=== PATIENT | male | born 1945 | race Caucasian/White ===

== ENCOUNTER 2020-06-08 11:29 | Observation (INO) | payer OTHER, SELFPAY ==
[2020-06-08] VITALS (26 sets, daily range): BP systolic 133–197; BP diastolic 84–112; PULSE 54–138; RESP 15–30; TEMP 36.8–36.9; O2SAT 92–97; BMI 34.4; BMI 33.1
--- NOTE | 2020-06-08 11:44 | ED.SOB ---
HPI - SOB/Dyspnea General Chief Complaint: Shortness of Breath/Dyspnea Stated Complaint: Shortness of breath, COPD, asthma, afib Time Seen by Provider: 06/08/20 11:44 Source: patient Mode of arrival: Ambulatory Limitations: no limitations History of Present Illness HPI Narrative: This is a 75-year-old male who comes to the emergency department complaint of shortness of breath that is been worse over the last 10 days. Patient states he was seen at a clinic yesterday and encouraged to go to the hospital but did not. He was started on prednisone orally yesterday. He has not had any fevers, no nasal congestion, he has chronic cough which has had a little bit of intermittent green productive sputum but typically is clear and productive which is his norm. He has had increased shortness of breath over the last 10 days and not improving. Patient denies any chest pain or pressure or any radiation of chest pain or pressure. He denies any GI or urinary symptoms. He has swelling in his lower extremities but states maybe slightly worse than his normal. He states he always has a certain amount of swelling. He is not aware that he has any history of CHF but he does take Lasix daily. Patient does not have any other known cardiac history, he has known COPD/asthma. He denies any allergies. Related Data Allergies Allergy/AdvReac Type Severity Reaction Status Date / Time No Known Drug Allergies Allergy Verified 06/08/20 12:45 Review of Systems Review of Systems ROS Unobtainable: All systems reviewed & are unremarkable except as noted in HPI and below Patient History Social History Smoking Status: Former smoker Exam Narrative Exam Narrative: GEN: well nourished, well appearing male, alert and oriented x 3, patient appears to be in moderate distress. HEENT: Atraumatic, pupils are equal round reactive to light, extraocular movements are intact, nares are clear, TMs are clear with no fluid, there is no conjunctival pallor. Throat is clear without any exudates, erythema, tonsillar enlargement or uvular deviation HEART: Intermittently rapid and irregularly irregular rate and rhythm without murmur, clicks, rubs. No carotid bruits, pulses are equal in upper and lower extremities, patient has 2+ edema bilateral lower extremities LUNGS:Lungs equal bilaterally, no wheezes, rales, crackles, chest moves symmetrically ABD:bowel sounds normal, soft, non-tender, no guarding, rebound, rigidity, no masses noted, no hepatosplenomegaly :No CVA tenderness MSCL: Non-tender, no muscle atrophy, muscles strength 5/5 upper and lower extremities, full range of motion NEURO:CN 2-12 intact, sensation normal Initial Vital Signs Initial Vital Signs: Vital Signs Pulse Rate 118 H 06/08/20 11:41 Pulse Oximetry 96 06/08/20 11:41 Course Orders Ordered: ED Orders 06/08/20 11:50 Basic Metabolic Panel Stat COVID19 -ED/INPAT/OR/L&D Stat Complete Blood Count AUTO DIFF Stat Lactate (Lactic Acid) Stat Magnesium Stat NT-proBNP (BNP-Adult 18+) Stat Partial Thromboplastin Time Stat Procalcitonin Stat Prothrombin Time INR Stat Troponin & CK Cardiac Panel Stat 06/08/20 11:53 Consult to Respiratory Therapy Evaluate & Treat 06/08/20 11:54 XR chest 1V Stat 06/08/20 13:30 Respiratory Panel (Film Array) Stat Nitroglycerin (Nitrostat) 0.4 mg SL [id number] PRN PRN Reason: Chest Pain Last Admin: 06/08/20 15:22 Dose: 0.4 mg Documented by: KENNEY Discontinued Medications Albuterol (Ventolin Hfa (Vent/Covid R/O)) 2 puff INH NOW ONE Stop: 06/08/20 11:54 Last Admin: 06/08/20 12:37 Dose: 2 puff Documented by: UMAIR Furosemide (Lasix) 40 mg IV NOW ONE Stop: 06/08/20 11:54 Last Admin: 06/08/20 12:46 Dose: 40 mg Documented by: JUAN Ceftriaxone Sodium/Dextrose (Rocephin) 2 gm in 50 mls @ 100 mls/hr IV NOW ONE Stop: 06/08/20 14:52 Last Infusion: 06/08/20 15:25 Dose: 0 mls/hr Documented by: Admin: 06/08/20 14:42 Dose: 100 mls/hr Documented by: KENNEY Methylprednisolone (Solu-Medrol 125 Mg Vial) 125 mg IV NOW ONE Stop: 06/08/20 11:54 Last Admin: 06/08/20 12:46 Dose: 125 mg Documented by: JUAN Vital Signs Vital signs: Vital Signs - 8 hr 06/08/20 11:41 06/08/20 11:52 06/08/20 11:56 Temperature 98.4 F Pulse Rate 118 H 115 H 101 H Respiratory Rate 28 H 21 Blood Pressure 137/100 H 137/100 H Pulse Oximetry 96 97 95 06/08/20 12:00 06/08/20 12:30 06/08/20 12:39 Temperature Pulse Rate 84 76 106 H Respiratory Rate 20 17 24 Blood Pressure 154/97 H 151/84 H Pulse Oximetry 95 94 97 06/08/20 13:00 06/08/20 13:30 06/08/20 13:38 Temperature Pulse Rate 78 86 97 H Respiratory Rate 15 16 26 H Blood Pressure 147/96 H 161/108 H 168/112 H Pulse Oximetry 94 96 94 06/08/20 14:00 06/08/20 14:29 06/08/20 14:30 Temperature Pulse Rate 103 H 83 82 Respiratory Rate 21 24 24 Blood Pressure 167/108 H 145/95 H Pulse Oximetry 94 94 93 06/08/20 14:45 06/08/20 14:47 06/08/20 15:00 Temperature Pulse Rate 112 H 97 H 93 H Respiratory Rate 24 23 22 Blood Pressure 174/106 H 197/107 H 164/88 H Pulse Oximetry 95 94 06/08/20 15:22 06/08/20 15:28 06/08/20 15:30 Temperature Pulse Rate 111 H 92 H 101 H Respiratory Rate 20 24 Blood Pressure 164/88 H 142/95 H 136/85 Pulse Oximetry 94 92 06/08/20 16:00 Temperature Pulse Rate 98 H Respiratory Rate 22 Blood Pressure 162/99 H Pulse Oximetry 94 MDM - SOB/Dyspnea Lab Data Result diagrams: 06/08/20 11:50 06/08/20 11:50 Labs: Lab Results 06/08/20 06/08/20 06/08/20 Range/Units 11:50 11:50 11:50 WBC 6.8 (4.5-11.0) X10^3/uL RBC 4.64 (4.5-5.9) X10^6/uL Hgb 14.9 (13.5-17.5) g/dL Hct 44.1 (41-53) % MCV 95.0 (80-100) fL MCH 32.1 (26-34) PG MCHC 33.8 (30-36) % RDW 14.1 (11.6-14.8) % Plt Count 186 (150-400) X10^3/uL Neut % (Auto) 78.6 H (50-75) % Lymph % (Auto) 14.3 L (25-40) % [place] % (Auto) 6.5 (3-14) % Eos % (Auto) 0.4 L (2-4) % Baso % (Auto) 0.2 (0-2) % Neut # (Auto) 5300 (2466-5540) /uL Lymph # (Auto) 1000 L (8097-4878) /uL [place] # (Auto) 400 (0-900) /uL Eos # (Auto) 0 (0-450) /uL Baso # (Auto) 0 (0-100) /uL PT 12.9 H (10.1-12.7) SECONDS INR 1.1 (0.9-1.3) APTT 40 H (26.4-36.2) SECONDS Sodium 138 (137-145) mmol/L Potassium 4.4 (3.4-5.1) mmol/L Chloride 104 (98-107) mmol/L Carbon Dioxide 27 (22-32) mmol/L BUN 19 (9-20) mg/dL Creatinine 0.73 (0.66-1.25) mg/dL Estimated GFR > 60.0 (>60) mL/min BUN/Creatinine Ratio 26.0 H (6-22) Glucose 164 H (80-110) mg/dL Lactate (0.7-2.1) mmol/L Calcium 9.4 (8.4-10.2) mg/dL Magnesium 2.5 H (1.6-2.3) mg/dL Total Creatine Kinase 440 H (55-170) U/L CK-MB (CK-2) 5.86 H (<2.37) ng/mL CK-MB (CK-2) Rel Index 1.3 L (1.5-5.0) % Troponin I < 0.012 (0.01-0.034) ng/mL NT-Pro-B Natriuret Pep 1420 H (<125) pg/mL Procalcitonin (<0.5) ng/mL Chlamy pneumoniae PCR (Not Detect) Adenovirus (PCR) (Not Detect) B.parapertussis DNA PCR (Not Detect) Coronavirus OC43 (PCR) (Not Detect) Coronavirus HKU1 (PCR) (Not Detect) Coronavirus 229E (PCR) (Not Detect) COVID-19 PCR (Negative) Coronavirus NL63 (PCR) (Not Detect) Human Metapneumovir PCR (Not Detect) Influenza Type A (PCR) (Not Detect) Influenza Type B (PCR) (Not Detect) M. pneumoniae (PCR) (Not Detect) Parainfluenza 1 (PCR) (Not Detect) Parainfluenza 2 (PCR) (Not Detect) Parainfluenza 3 (PCR) (Not Detect) Parainfluenza 4 (PCR) (Not Detect) RSV (PCR) (Not Detect) Entero/Rhino (PCR) (Not Detect) 06/08/20 06/08/20 06/08/20 Range/Units 11:50 11:50 11:50 WBC (4.5-11.0) X10^3/uL RBC (4.5-5.9) X10^6/uL Hgb (13.5-17.5) g/dL Hct (41-53) % MCV (80-100) fL MCH (26-34) PG MCHC (30-36) % RDW (11.6-14.8) % Plt Count (150-400) X10^3/uL Neut % (Auto) (50-75) % Lymph % (Auto) (25-40) % [place] % (Auto) (3-14) % Eos % (Auto) (2-4) % Baso % (Auto) (0-2) % Neut # (Auto) (5127-0321) /uL Lymph # (Auto) (1598-0526) /uL [place] # (Auto) (0-900) /uL Eos # (Auto) (0-450) /uL Baso # (Auto) (0-100) /uL PT (10.1-12.7) SECONDS INR (0.9-1.3) APTT (26.4-36.2) SECONDS Sodium (137-145) mmol/L Potassium (3.4-5.1) mmol/L Chloride (98-107) mmol/L Carbon Dioxide (22-32) mmol/L BUN (9-20) mg/dL Creatinine (0.66-1.25) mg/dL Estimated GFR (>60) mL/min BUN/Creatinine Ratio (6-22) Glucose (80-110) mg/dL Lactate 2.9 H (0.7-2.1) mmol/L Calcium (8.4-10.2) mg/dL Magnesium (1.6-2.3) mg/dL Total Creatine Kinase (55-170) U/L CK-MB (CK-2) (<2.37) ng/mL CK-MB (CK-2) Rel Index (1.5-5.0) % Troponin I (0.01-0.034) ng/mL NT-Pro-B Natriuret Pep (<125) pg/mL Procalcitonin < 0.05 (<0.5) ng/mL Chlamy pneumoniae PCR (Not Detect) Adenovirus (PCR) (Not Detect) B.parapertussis DNA PCR (Not Detect) Coronavirus OC43 (PCR) (Not Detect) Coronavirus HKU1 (PCR) (Not Detect) Coronavirus 229E (PCR) (Not Detect) COVID-19 PCR Negative (Negative) Coronavirus NL63 (PCR) (Not Detect) Human Metapneumovir PCR (Not Detect) Influenza Type A (PCR) (Not Detect) Influenza Type B (PCR) (Not Detect) M. pneumoniae (PCR) (Not Detect) Parainfluenza 1 (PCR) (Not Detect) Parainfluenza 2 (PCR) (Not Detect) Parainfluenza 3 (PCR) (Not Detect) Parainfluenza 4 (PCR) (Not Detect) RSV (PCR) (Not Detect) Entero/Rhino (PCR) (Not Detect) 06/08/20 06/08/20 Range/Units 13:30 14:30 WBC (4.5-11.0) X10^3/uL RBC (4.5-5.9) X10^6/uL Hgb (13.5-17.5) g/dL Hct (41-53) % MCV (80-100) fL MCH (26-34) PG MCHC (30-36) % RDW (11.6-14.8) % Plt Count (150-400) X10^3/uL Neut % (Auto) (50-75) % Lymph % (Auto) (25-40) % [place] % (Auto) (3-14) % Eos % (Auto) (2-4) % Baso % (Auto) (0-2) % Neut # (Auto) (8007-4550) /uL Lymph # (Auto) (4689-8214) /uL [place] # (Auto) (0-900) /uL Eos # (Auto) (0-450) /uL Baso # (Auto) (0-100) /uL PT (10.1-12.7) SECONDS INR (0.9-1.3) APTT (26.4-36.2) SECONDS Sodium (137-145) mmol/L Potassium (3.4-5.1) mmol/L Chloride (98-107) mmol/L Carbon Dioxide (22-32) mmol/L BUN (9-20) mg/dL Creatinine (0.66-1.25) mg/dL Estimated GFR (>60) mL/min BUN/Creatinine Ratio (6-22) Glucose (80-110) mg/dL Lactate 2.2 H (0.7-2.1) mmol/L Calcium (8.4-10.2) mg/dL Magnesium (1.6-2.3) mg/dL Total Creatine Kinase (55-170) U/L CK-MB (CK-2) (<2.37) ng/mL CK-MB (CK-2) Rel Index (1.5-5.0) % Troponin I (0.01-0.034) ng/mL NT-Pro-B Natriuret Pep (<125) pg/mL Procalcitonin (<0.5) ng/mL Chlamy pneumoniae PCR Not detected (Not Detect) Adenovirus (PCR) Not detected (Not Detect) B.parapertussis DNA PCR Not detected (Not Detect) Coronavirus OC43 (PCR) Not detected (Not Detect) Coronavirus HKU1 (PCR) Not detected (Not Detect) Coronavirus 229E (PCR) Not detected (Not Detect) COVID-19 PCR (Negative) Coronavirus NL63 (PCR) Not detected (Not Detect) Human Metapneumovir PCR Not detected (Not Detect) Influenza Type A (PCR) Not detected (Not Detect) Influenza Type B (PCR) Not detected (Not Detect) M. pneumoniae (PCR) Not detected (Not Detect) Parainfluenza 1 (PCR) Not detected (Not Detect) Parainfluenza 2 (PCR) Not detected (Not Detect) Parainfluenza 3 (PCR) Not detected (Not Detect) Parainfluenza 4 (PCR) Not detected (Not Detect) RSV (PCR) Not detected (Not Detect) Entero/Rhino (PCR) Not detected (Not Detect) Imaging Data Chest x-ray: Radiologist's Impression: [address] [id number] XRay Report Signed Patient: Indio Butler DMR#: [id number] : 6Acct:[id number] Age/Sex: 75 / MDate of Service: 06/08/20 Loc: ED Accession Number: [id number] Procedure: XR chest 1V Ordering Provider: Anusha Stockton D.O. PROCEDURE: XR CHEST 1V INDICATIONS: sob, copd/asthma, afib TECHNIQUE: One view of the chest was acquired. COMPARISON: None. FINDINGS: Surgical changes and devices: None. Lungs and pleura: Ill-defined pulmonary radiopacities are present within the mid and lower lungs bilaterally. No focal airspace consolidation. No pleural effusion or pneumothorax. Mediastinum: Mediastinal contours appear normal. Heart size is normal. Bones and chest wall: No suspicious bony lesions. Overlying soft tissues appear unremarkable. IMPRESSION: Ill-defined bilateral pulmonary radiopacities suspicious for multifocal pneumonia or viral pneumonia. Aspiration could also be considered in the differential. Dictated by: Kalpana Caraballo M.D. on 06/08/2020 at 12:23 Approved by: Kalpana Caraballo M.D. on 06/08/2020 at 12:25 ECG Data Attestation: I personally reviewed and interpreted this ECG as follows: Interpretation: AFib with rapid ventricular response rate of 112, QRS of 113 and QTC of 387. Nonspecific ST change no elevation appreciated. EKG2. AFib with rapid ventricular response rate of 101, QRS of 102 and QTC of 474. No ST elevation or depression. Patient has incomplete right bundle-branch plan. EKG appears similar to prior from earlier today. Discharge Plan Departure Patient Disposition: Admitted as Observation Clinical Impression: Pneumonia, Atrial fibrillation, Elevated lactic acid level Admit Date/Time: 06/08/20 16:16 Admit Provider: Uriel Mcduffie
--- NOTE | 2020-06-08 11:54 | DI.RAD.S_ITS ---
PROCEDURE: XR CHEST 1V INDICATIONS: sob, copd/asthma, afib TECHNIQUE: One view of the chest was acquired. COMPARISON: None. FINDINGS: Surgical changes and devices: None. Lungs and pleura: Ill-defined pulmonary radiopacities are present within the mid and lower lungs bilaterally. No focal airspace consolidation. No pleural effusion or pneumothorax. Mediastinum: Mediastinal contours appear normal. Heart size is normal. Bones and chest wall: No suspicious bony lesions. Overlying soft tissues appear unremarkable. IMPRESSION: Ill-defined bilateral pulmonary radiopacities suspicious for multifocal pneumonia or viral pneumonia. Aspiration could also be considered in the differential. Dictated by: Kalpana Caraballo M.D. on 06/08/2020 at 12:23 Approved by: Kalpana Caraballo M.D. on 06/08/2020 at 12:25
[2020-06-08 12:15] LABS: INR 1.1 (0.9-1.3); Prothrombin Time 12.9 SECONDS (10.1-12.7)
[2020-06-08 12:16] LABS: Add Manual Diff / Slide Review NO; Basophils Absolute Auto 0 /uL (0-100); Basophils Percent Auto 0.2 % (0-2); Eosinophils Absolute Auto 0 /uL (0-450); Eosinophils Percent Auto 0.4 % (2-4); Hematocrit 44.1 % (41-53); Hemoglobin 14.9 g/dL (13.5-17.5); Lymphocytes Absolute Auto 1000 /uL (1100-4500); Lymphocytes Percent Auto 14.3 % (25-40); Mean Corpuscular HGB Conc 33.8 % (30-36); Mean Corpuscular Hemoglobin 32.1 PG (26-34); Monocytes Absolute Auto 400 /uL (0-900); Monocytes Percent Auto 6.5 % (3-14); Neutrophils Absolute Auto 5300 /uL (1500-7000); Neutrophils Percent Auto 78.6 % (50-75); Platelet Count 186 X10^3/uL (150-400); Red Blood Cell Count 4.64 X10^6/uL (4.5-5.9); Red Cell Distribution Width 14.1 % (11.6-14.8); White Blood Cell Count 6.8 X10^3/uL (4.5-11.0)
[2020-06-08 12:17] LABS: Lactate (Lactic Acid) 2.9 mmol/L (0.7-2.1); PTT Partial Thromboplastin Tim 40 SECONDS (26.4-36.2)
[2020-06-08 12:21] LABS: Blood Urea Nitrogen 19 mg/dL (9-20); Calcium 9.4 mg/dL (8.4-10.2); Carbon Dioxide 27 mmol/L (22-32); Chloride 104 mmol/L (98-107); Creatine Kinase 440 U/L (55-170); Estimated Glomerular Filt Rate > 60.0 mL/min (>60); Glucose 164 mg/dL (80-110); HEMOLYSIS < 15 (0-50); Magnesium 2.5 mg/dL (1.6-2.3); Potassium 4.4 mmol/L (3.4-5.1); Sodium 138 mmol/L (137-145)
[2020-06-08 12:33] LABS: NT-proBNP (BNP-Adult 18+) 1420 pg/mL (<125); Troponin I < 0.012 ng/mL (0.01-0.034)
[2020-06-08 12:35] LABS: CKMB % Relative Index 1.3 % (1.5-5.0); Creatine Kinase MB 5.86 ng/mL (<2.37)
[2020-06-08 12:37] LABS: COVID19 -Nasal RAPID Negative (Negative); Procalcitonin < 0.05 ng/mL (<0.5)
[2020-06-08] MEDS: ALBUTEROL HFA 200 PUFF/18 GM INH (COVID POS/VENT PTS) INH (12:37)
[2020-06-08] MEDS: FUROSEMIDE 40 MG/4 ML VIAL IV ×2 (12:46→18:42)
[2020-06-08] MEDS: methylPREDNISolone 125 MG/2 ML VIAL IV (12:46)
[2020-06-08 14:08] LABS: Reflexed Lactate in 2 Hours Y
[2020-06-08] MEDS: CEFTRIAXONE 2 GM/50 ML FROZ.PIGGY IV (14:42)
[2020-06-08 14:52] LABS: Lactate 2HR (Lactic Acid Rflx) 2.2 mmol/L (0.7-2.1)
[2020-06-08 14:52] LABS: Adenovirus Not Detected (Not Detect); Bordetella pertussis Not Detected (Not Detect); Chlamydophila pneumoniae Not Detected (Not Detect); Coronavirus 229E Not Detected (Not Detect); Coronavirus HKU1 Not Detected (Not Detect); Coronavirus NL 63 Not Detected (Not Detect); Coronavirus OC43 Not Detected (Not Detect); Human Metapneumovirus Not Detected (Not Detect); Human Rhinovirus/Enterovirus Not Detected (Not Detect); Influenza A Not Detected (Not Detect); Influenza B Not Detected (Not Detect); Mycoplasma pneumoniae Not Detected (Not Detect); Parainfluenza Virus 1 Not Detected (Not Detect); Parainfluenza Virus 2 Not Detected (Not Detect); Parainfluenza Virus 3 Not Detected (Not Detect); Parainfluenza Virus 4 Not Detected (Not Detect); Respiratory Syncytial Virus Not Detected (Not Detect)
--- NOTE | 2020-06-08 14:57 | PC.NURSE ---
Completed ambulatory trial with patient per Dr Smith request. Patient maintained O2 saturation at 94% throughout trial and pulse in high 90s. No visible breathing difficulties throughout trial. After securing patient back in bed stated still feeling chest pressure like there's a weight on me. Patient affirms this is unchanged since symptoms began 10 days ago and denies chest pain. Provider notified. Repeat EKG ordered.
[2020-06-08] MEDS: NITROGLYCERIN 0.4 MG SL TAB SL (15:22)
--- NOTE | 2020-06-08 16:22 | PM.HP.1 ---
History of Present Illness History of Present Illness Date Patient Seen: 06/08/20 Time Patient Seen: 16:22 Chief complaint: Shortness of breath, COPD, asthma, afib Narrative: Indio Butler is a 75-year-old male with a past medical history of chronic atrial fibrillation, COPD, alcohol abuse, hypertension, and prior coronary artery aneurysm who presented with shortness of breath worsening over the past 10 days or so. Patient states he went to an urgent care appointment yesterday who recommended that he actually be admitted to the hospital because he was so short of breath, his heart was racing, and he needed oxygen. Patient states that he looked better after getting some supplemental oxygen and prednisone, and the patient states that he was stubborn and wanted to go home so they let him. He picked up his prescription of prednisone and felt well until this morning when he had sudden onset of shortness of breath and felt like he could not breathe. He denies any palpitations, but also states his heart was racing at his the urgent care yesterday and he did not feel this. He also complains of 10 days of orthopnea and lower extremity edema. He denies any fevers, or chills but states that he had along with his increasing shortness of breath increased phlegm production which has decreased since starting his steroids. He denies any chest pain on exertion, nausea, early satiety, constipation, or diarrhea. Patient further states that he drinks about 6 beers nightly, increased recently as he has been socially isolating in his trailer since October and states that he is just bored. He denies any prior symptoms of alcohol withdrawal, and states in the past he is previously quit cold turkey without issue. 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 he is not recall his last ultrasound but states that he has not seen a regular doctor since [facility] because he has been socially isolating. In the emergency room, the patient was in atrial fibrillation with an uncontrolled rate as high as the 130s, hypertensive, and tachypneic but saturating well on room air. Laboratory evaluation revealed an unremarkable CBC, normal coagulation studies, chemistries were notable for an elevated lactate of 2.9, improved to 2.2 after initial therapies. Glucose was also mildly elevated 164. Troponin was negative. ProBNP was 1420. Procalcitonin was negative. Respiratory panel was negative including COVID-19 testing. EKG showed atrial fibrillation with an uncontrolled rate at [address] or T-wave abnormalities. Chest x-ray showed ill-defined opacities bilaterally with consolidation in the right lower lobe. Home Meds per patient: inhalers for COPD Lisinopril 20 or 40 mg ? dosing unknown furosemide 20 mg daily amlodipine 10 mg Xarelto 20 mg FamHx: No relevant past family history per patient Patient History Medical History (Updated 06/08/20 @ 18:32 by Uriel Mcduffie DO) Chronic atrial fibrillation with rapid ventricular response (Acute) COPD (chronic obstructive pulmonary disease) (Acute) Coronary artery aneurysm (Acute) Essential hypertension (Acute) Surgical History (Updated 06/08/20 @ 18:32 by Uriel Mcduffie DO) H/O cardiac catheterization (Acute) Family & Social History Safety & Behavioral: Feels Safe in Current Yes Environment Been Physically Hurt or No Threatened By a Person Tobacco & Substance use: Smoking Status Former smoker alcohol intake frequency 3 or more drinks per day Substance Use Type does not use Meds Home Medications and Allergies Home Medications Medication Instructions Recorded Confirmed Type albuterol sulfate 1 puff INHALATION QID PRN 06/08/20 06/08/20 History amlodipine 10 mg PO DAILY 06/08/20 06/08/20 History budesonide-formoterol [Symbicort] 2 puff INHALATION BID 06/08/20 06/08/20 History furosemide [Lasix] 20 mg PO DAILY 06/08/20 06/08/20 History lisinopril 40 mg PO DAILY 06/08/20 06/08/20 History rivaroxaban [Xarelto] 20 mg PO DAILY 06/08/20 06/08/20 History tamsulosin [Flomax] 0.4 mg PO BEDTIME 06/08/20 06/08/20 History Allergies Allergy/AdvReac Type Severity Reaction Status Date / Time Obdnlhe-Sjf-Vcf Reductase Allergy Mild Rash Verified 06/08/20 17:03 Inhibitor Review of Systems Review of Systems Narrative: All other systems reviewed with the patient and are negative unless otherwise stated. Exam Vital Signs (past 8 hours): - 06/08/20 11:41 06/08/20 11:52 06/08/20 11:56 Temperature 98.4 F Pulse Rate 118 H 115 H 101 H Respiratory Rate 28 H 21 Blood Pressure 137/100 H 137/100 H Pulse Oximetry 96 97 95 06/08/20 12:00 06/08/20 12:30 06/08/20 12:39 Temperature Pulse Rate 84 76 106 H Respiratory Rate 20 17 24 Blood Pressure 154/97 H 151/84 H Pulse Oximetry 95 94 97 06/08/20 13:00 06/08/20 13:30 06/08/20 13:38 Temperature Pulse Rate 78 86 97 H Respiratory Rate 15 16 26 H Blood Pressure 147/96 H 161/108 H 168/112 H Pulse Oximetry 94 96 94 06/08/20 14:00 06/08/20 14:29 06/08/20 14:30 Temperature Pulse Rate 103 H 83 82 Respiratory Rate 21 24 24 Blood Pressure 167/108 H 145/95 H Pulse Oximetry 94 94 93 06/08/20 14:45 06/08/20 14:47 06/08/20 15:00 Temperature Pulse Rate 112 H 97 H 93 H Respiratory Rate 24 23 22 Blood Pressure 174/106 H 197/107 H 164/88 H Pulse Oximetry 95 94 06/08/20 15:22 06/08/20 15:28 06/08/20 15:30 Temperature Pulse Rate 111 H 92 H 101 H Respiratory Rate 20 24 Blood Pressure 164/88 H 142/95 H 136/85 Pulse Oximetry 94 92 06/08/20 16:00 Temperature Pulse Rate 98 H Respiratory Rate 22 Blood Pressure 162/99 H Pulse Oximetry 94 Oxygen Delivery Method Room Air Narrative Exam Narrative: GENERAL APPEARANCE: Well developed, well nourished, in no acute distress. SKIN: Inspection of the skin reveals no rashes, ulcerations or petechiae. HEENT: Normocephalic atraumatic, extraocular muscles are intact, oropharynx is clear and mucous membranes are moist, neck is supple without adenopathy NECK: Supple and symmetric. There was no thyroid enlargement, and no tenderness, or masses were felt. CHEST: Normal AP diameter and normal contour without any kyphoscoliosis. LUNGS: Auscultation of the lungs revealed bibasilar crackles without wheezing. CARDIOVASCULAR: Tachycardic, irregularly irregular, no murmurs, rubs, or gallops. ABDOMEN: Soft and nontender with normal bowel sounds. No ascites was noted. MUSCULOSKELETAL: There was no tenderness or effusions noted. Muscle strength and tone were normal. EXTREMITIES: No cyanosis, clubbing. There is 2+ pitting edema bilaterally in his lower extremities. NEUROLOGIC: Alert and oriented x 3. Normal affect. Strength is +5/5 in the Upper Extremities and Lower Extremities Bilaterally. Sensation to touch was normal. Objective Labs Result Diagrams: 06/08/20 11:50 06/08/20 11:50 Labs: Laboratory Results - last 24 hr 06/08/20 06/08/20 06/08/20 11:50 11:50 11:50 WBC 6.8 RBC 4.64 Hgb 14.9 Hct 44.1 MCV 95.0 MCH 32.1 MCHC 33.8 RDW 14.1 Plt Count 186 Neut % (Auto) 78.6 H Lymph % (Auto) 14.3 L Converse % (Auto) 6.5 Eos % (Auto) 0.4 L Baso % (Auto) 0.2 Neut # (Auto) 5300 Lymph # (Auto) 1000 L Converse # (Auto) 400 Eos # (Auto) 0 Baso # (Auto) 0 PT 12.9 H INR 1.1 APTT 40 H Sodium 138 Potassium 4.4 Chloride 104 Carbon Dioxide 27 BUN 19 Creatinine 0.73 Estimated GFR > 60.0 BUN/Creatinine Ratio 26.0 H Glucose 164 H Lactate Calcium 9.4 Magnesium 2.5 H Total Creatine Kinase 440 H CK-MB (CK-2) 5.86 H CK-MB (CK-2) Rel Index 1.3 L Troponin I < 0.012 NT-Pro-B Natriuret Pep 1420 H Procalcitonin Chlamy pneumoniae PCR Adenovirus (PCR) B.parapertussis DNA PCR Coronavirus OC43 (PCR) Coronavirus HKU1 (PCR) Coronavirus 229E (PCR) COVID-19 PCR Coronavirus NL63 (PCR) Human Metapneumovir PCR Influenza Type A (PCR) Influenza Type B (PCR) M. pneumoniae (PCR) Parainfluenza 1 (PCR) Parainfluenza 2 (PCR) Parainfluenza 3 (PCR) Parainfluenza 4 (PCR) RSV (PCR) Entero/Rhino (PCR) 06/08/20 06/08/20 06/08/20 11:50 11:50 11:50 WBC RBC Hgb Hct MCV MCH MCHC RDW Plt Count Neut % (Auto) Lymph % (Auto) Converse % (Auto) Eos % (Auto) Baso % (Auto) Neut # (Auto) Lymph # (Auto) Converse # (Auto) Eos # (Auto) Baso # (Auto) PT INR APTT Sodium Potassium Chloride Carbon Dioxide BUN Creatinine Estimated GFR BUN/Creatinine Ratio Glucose Lactate 2.9 H Calcium Magnesium Total Creatine Kinase CK-MB (CK-2) CK-MB (CK-2) Rel Index Troponin I NT-Pro-B Natriuret Pep Procalcitonin < 0.05 Chlamy pneumoniae PCR Adenovirus (PCR) B.parapertussis DNA PCR Coronavirus OC43 (PCR) Coronavirus HKU1 (PCR) Coronavirus 229E (PCR) COVID-19 PCR Negative Coronavirus NL63 (PCR) Human Metapneumovir PCR Influenza Type A (PCR) Influenza Type B (PCR) M. pneumoniae (PCR) Parainfluenza 1 (PCR) Parainfluenza 2 (PCR) Parainfluenza 3 (PCR) Parainfluenza 4 (PCR) RSV (PCR) Entero/Rhino (PCR) 06/08/20 06/08/20 13:30 14:30 WBC RBC Hgb Hct MCV MCH MCHC RDW Plt Count Neut % (Auto) Lymph % (Auto) Converse % (Auto) Eos % (Auto) Baso % (Auto) Neut # (Auto) Lymph # (Auto) Converse # (Auto) Eos # (Auto) Baso # (Auto) PT INR APTT Sodium Potassium Chloride Carbon Dioxide BUN Creatinine Estimated GFR BUN/Creatinine Ratio Glucose Lactate 2.2 H Calcium Magnesium Total Creatine Kinase CK-MB (CK-2) CK-MB (CK-2) Rel Index Troponin I NT-Pro-B Natriuret Pep Procalcitonin Chlamy pneumoniae PCR Not detected Adenovirus (PCR) Not detected B.parapertussis DNA PCR Not detected Coronavirus OC43 (PCR) Not detected Coronavirus HKU1 (PCR) Not detected Coronavirus 229E (PCR) Not detected COVID-19 PCR Coronavirus NL63 (PCR) Not detected Human Metapneumovir PCR Not detected Influenza Type A (PCR) Not detected Influenza Type B (PCR) Not detected M. pneumoniae (PCR) Not detected Parainfluenza 1 (PCR) Not detected Parainfluenza 2 (PCR) Not detected Parainfluenza 3 (PCR) Not detected Parainfluenza 4 (PCR) Not detected RSV (PCR) Not detected Entero/Rhino (PCR) Not detected Assessment & Plan Assessment & Plan narrative: Indio Butler is a 75-year-old male with a past medical history of chronic atrial fibrillation, COPD, alcohol abuse, hypertension, and prior coronary artery aneurysm who presented with shortness of breath worsening over the past 10 days or so, he will be admitted under observation status for atrial fibrillation with rapid ventricular response likely leading to suspected decompensated heart failure. 1. Chronic Atrial fibrillation with rapid ventricular response, present on admission -EKG shows atrial fibrillation with a rate of [address] or T-wave changes. Patient with spikes into the 130s laying in his emergency room stretcher on telemetry. He is not currently on any rate control according to his home medication list. -troponin negative -continue home Xarelto 20 mg -will add rate control with metoprolol, will start with 25 mg b.i.d. -continue telemetry, TTE as noted below. 2. Suspected heart failure, unknown ejection fraction, unknown chronicity but likely acute, with volume overload -suspect this is related to his tachyarrhythmia/likely chronically elevated heart rate in the setting of atrial fibrillation -patient has 2+ pitting edema bilaterally and an elevated proBNP, as well as findings suggestive of volume overload on his chest x-ray -will continue diuresis with 40 mg IV b.i.d. -will order TTE -try and obtain records 3. COPD exacerbation - given solumedrol 125 mg in the ER, continue prednisone 40 mg daily - do not suspect pneumonia at this time given negative PCR panel, negative pro-calcitonin and other more likely etiologies. will continue azithro x5 days for anti-inflammatory effect. - replace home inhalers, with pulmicort, duonebs and as needed albuterol inhalers. - RT eval and treat 4. Alcohol abuse -patient reports drinking 6 beers nightly. He denies prior symptoms of alcohol withdrawal and states that he has previously stopped drinking without any symptoms. -will order CIWA protocol. 5. Hypertension, chronic -will hold home amlodipine in favor of diuretic and rate control agents at this time. Unclear if he takes 20 or 40 mg of lisinopril at home but will continue 20 at this time. Code: Full, states surrogate decision maker is his son but would like his Girlfriend to make decisions, has not completed a POLST form. Dispo: Admitted under observation status as his stay is not currently expected to exceed 2 midnights COVID-19 COVID-19 status: Negative
[2020-06-08] MEDS: AZITHROMYCIN 250 MG in DEXTROSE 5% IN WATER 250 ML IV (17:49)
--- NOTE | 2020-06-08 18:36 | DI.ECHO.S_ITS ---
[facility]---------+ [facility] +---------+ : : [address] : : : : [id number] : : : : Phone: [phone] Echocardiogram Report + + :Name: GILMAR PLUMMER Study Date: 06/09/2020 Height: 71 in : :[facility] Weight: 237 lb : : Gender: Male BSA: 2.3 m2 : :: 1945 Age: 75 yrs BP: 142/101 mmHg: :Reason For Study: SHORTNESS OF BREATH, AFIB : :Ordering Physician: HOSPITALIST, : :EMMIE Performed By: Nicci Gil : :Referring: ARYAN REYES : + + Interpretation Summary Mild concentric left ventricular hypertrophy with ejection fraction 40-45%. Mild to moderate global hypokinesis of the left ventricle. Mildly dilated right ventricle with normal right ventricular systolic function. Severely dilated left atrium. Moderately dilated right atrium. Mild to moderate mitral regurgitation. Mild tricuspid regurgitation. Procedure: A two-dimensional transthoracic echocardiogram with color flow and Doppler was performed. The study quality was technically adequate. There is no prior echocardiogram noted for this patient. The patient was in atrial fibrillation with heart rates between 61-84 bpm during the exam. Left Ventricle: The left ventricle is normal in size. There is mild concentric left ventricular hypertrophy. The ejection fraction is estimated to be 40-45%. There is mild to moderate global hypokinesis of the left ventricle. Diastolic function could not be accurately assessed due to atrial fibrillation. Right Ventricle: The right ventricle is mildly dilated. The right ventricular systolic function is normal. Atria: The left atrium is severely dilated. The right atrium is moderately dilated. There is no Doppler evidence for an interatrial shunt. Mitral Valve: The mitral valve leaflets appear mildly thickened, but open well. There is mild to moderate mitral regurgitation. Aortic Valve: The aortic valve is not well visualized. The aortic valve opens well. There is no aortic valve stenosis. There is trace aortic regurgitation. Tricuspid Valve: The tricuspid valve is normal in structure and function. There is mild tricuspid regurgitation. The right ventricular systolic pressure is estimated to be at least 34 mmHg based on an estimated right atrial pressure of 8 mm Hg. Pulmonic Valve: The pulmonic valve is not well seen, but is grossly normal. There is trace pulmonic regurgitation. Great Vessels: The aortic root is mildly dilated. The ascending aorta could not be visualized. The IVC is of normal diameter and collapses less than 50% with a sniff. This suggests a right atrial pressure of 8 mm Hg. Pericardium/ Pleura There is no pericardial effusion. There is no pleural effusion. MMode/2D Measurements & Calculations LVIDd: 5.8 cm LVOT diam: 3.0 cm LVIDs: 4.3 cm Ao root diam: 4.7 cm FS: 25.5 % EPSS: 1.7 cm IVSd: 0.96 cm LVPWd: 1.3 cm LV castro. diameter/BSA (cm/m^2): 2.6 LV sys. diameter/BSA (cm/m^2): 1.9 LA A2 area: 31.6 cm2 RA long axis: 7.1 cm LA A4 area: 32.5 cm2 RA area: 28.0 cm2 LA length (vol): 7.3 cm RA vol: 94.8 ml LA vol: 120.3 ml RA : 41.8 ml/m2 LA vol index: 53.1 ml/m2 IVC diam: 1.9 cm RVD1 (basal): 4.1 cm TAPSE: 1.8 cm Doppler Measurements & Calculations Ao V2 max: 153.1 cm/sec LVOT Max Salvador: 80.2 cm/sec Ao V2 mean: 104.0 cm/sec LV V1 max P.6 mmHg Ao max P.4 mmHg LV V1 VTI: 15.3 cm Ao mean P.9 mmHg LAURY(I,D): 3.8 cm2 Ao V2 VTI: 29.3 cm LAURY(V,D): 3.8 cm2 sev ratio: 0.52 LAURY indexed to BSA (cm^2/m^2): 1.7 MV E max salvador: 88.2 cm/sec TR max salvador: 241.7 cm/sec MV A max salvador: 1.6 cm/sec TR max P.4 mmHg MV E/A: 54.9 PA V2 max: 54.3 cm/sec Med Peak E' Salvador: 8.0 cm/sec PA V2 mean: 33.1 cm/sec E/E' med: 11.1 PA mean P.54 mmHg Lat Peak E' Salvador: 12.0 cm/sec PA pr(Accel): 17.3 mmHg E/E' lat: 7.3 E/e' average: 9.2 MV dec time: 0.21 sec SV(LVOT): 110.8 ml Electronically signed by: Valeria Gonzales on Reading Physician:06/09/2020 01:38 PM
[2020-06-08] MEDS: ALBUTEROL 2.5 MG/3 ML NEB (ADULT) INH (18:40)
[2020-06-08] MEDS: METOPROLOL ER 25 MG TABLET PO (20:19)
[2020-06-08] MEDS: TAMSULOSIN 0.4 MG CAPSULE PO (20:19)
[2020-06-08] MEDS: ALBUTEROL/IPRATROPIUM 3 ML AMPUL INH (20:20)
[2020-06-08] MEDS: BUDESONIDE 0.5 MG/2 ML NEB INH (20:20)
[2020-06-09] VITALS (12 sets, daily range): BP systolic 131–142; BP diastolic 85–101; PULSE 75–111; RESP 16–20; TEMP 36.4–37.1; O2SAT 92–96
[2020-06-09] MEDS: ALBUTEROL 2.5 MG/3 ML NEB (ADULT) INH ×2 (03:59→12:18)
[2020-06-09 05:46] LABS: Add Manual Diff / Slide Review NO; Basophils Absolute Auto 0 /uL (0-100); Basophils Percent Auto 0.1 % (0-2); Eosinophils Absolute Auto 0 /uL (0-450); Hematocrit 42.8 % (41-53); Lymphocytes Absolute Auto 800 /uL (1100-4500); Lymphocytes Percent Auto 10.9 % (25-40); Mean Corpuscular HGB Conc 32.7 % (30-36); Mean Corpuscular Hemoglobin 31.2 PG (26-34); Mean Corpuscular Volume 95.6 fL (80-100); Monocytes Absolute Auto 400 /uL (0-900); Monocytes Percent Auto 5.6 % (3-14); Neutrophils Absolute Auto 5900 /uL (1500-7000); Neutrophils Percent Auto 83.4 % (50-75); Platelet Count 188 X10^3/uL (150-400); Red Blood Cell Count 4.47 X10^6/uL (4.5-5.9); Red Cell Distribution Width 14.3 % (11.6-14.8); White Blood Cell Count 7.1 X10^3/uL (4.5-11.0)
[2020-06-09 05:58] LABS: Alanine Aminotransferase 25 IU/L (<50); Albumin 3.8 g/dL (3.5-5.0); Albumin Globulin Ratio 1.5 (1.0-2.8); Alkaline Phosphatase 59 U/L (38-126); Aspartate Aminotransferase 30 IU/L (17-59); BUN Creatinine Ratio 24.7 (6-22); Bilirubin Total 0.8 mg/dL (0.2-1.3); Bilirubin Unconjugated 0.8 mg/dL (0.0-1.1); Blood Urea Nitrogen 21 mg/dL (9-20); Carbon Dioxide 31 mmol/L (22-32); Chloride 102 mmol/L (98-107); Cholesterol 171 mg/dL (140-199); Estimated Glomerular Filt Rate > 60.0 mL/min (>60); Globulin 2.6 g/dL (1.7-4.1); Glucose 138 mg/dL (80-110); HDL Cholesterol 51 mg/dL (40-60); HEMOLYSIS < 15 (0-50); LDL Cholesterol Calculated 110 mg/dL (<100); Magnesium 2.5 mg/dL (1.6-2.3); Sodium 138 mmol/L (137-145); Total Protein 6.4 g/dL (6.3-8.2); Triglycerides 48 mg/dL (35-150)
[2020-06-09 06:03] LABS: Hemoglobin A1C% w Est Avg Glu 5.4 % (4.0-6.0)
[2020-06-09 06:29] LABS: TSH w/ Reflex to FT4 0.22 uIU/mL (0.47-4.68)
[2020-06-09 07:24] LABS: Free T4, Direct Thyroxine 0.87 ng/dL (0.78-2.19)
[2020-06-09] MEDS: ALBUTEROL/IPRATROPIUM 3 ML AMPUL INH (07:53)
[2020-06-09] MEDS: BUDESONIDE 0.5 MG/2 ML NEB INH (07:53)
[2020-06-09] MEDS: FUROSEMIDE 40 MG/4 ML VIAL IV (07:58)
[2020-06-09] MEDS: SODIUM CHLORIDE 0.9% FLUSH 10 ML IV (07:58)
[2020-06-09] MEDS: METOPROLOL ER 25 MG TABLET PO (08:00)
[2020-06-09] MEDS: lisinopriL 20 MG TABLET PO (08:00)
[2020-06-09] MEDS: predniSONE 20 MG TABLET 40 MG PO (08:00)
--- NOTE | 2020-06-09 10:23 | PC.NURSE ---
Day Shift- Pt A&OX4, able to make needs known using call light and this RN reminds pt to use call light as pt states I don't want to disturb you. This RN stated that the bed alarm will go off and staff will be alerted, that why we want you to use the call light for assist. pt stated he understood, very pleasant and talkative. Denies pain, chest pain or pressure. States slightly short of breath with ambulation, better than yesterday. O2 sats 94-97% on RA. Pt has intermittent moist cough with clear to slight yellow color that is thick. Encouraged flutter valve breathing device. AE diminished with upper anterior expiratory wheeze with bilateral bases have mild coarseness upon auscultation.
--- NOTE | 2020-06-09 11:36 | CM.DANOTE ---
DCP/Assessment: Reviewed chart. Patient is a 75yr old male admitted to [facility] with SOB. Patient with h/o COPD. PCP is Dr. Cotto at [facility] and [place]. Primary payor is 1)[employer]. Met with patient explained CM/SW role. Patient alert, oriented, and very talkative at time of d/c. Patient reports that he is completely I with all ADL's. Patient currently [facility] in [facility] in [place], [place]. Patient reports that he has significant other/Nilsa that he has been dating for 2yrs. Patient reports that they do not live together. Patient very active for age and reports that he square dances everyday. At this time patient with no anticipated d/c planning needs. Patient scheduled for ECHO today and hopeful will be discharged after completed. P: Home when stable. EDMUNDO Cortes Discharge Planning/Care Management CM Discharge Assessment Start: 06/09/20 11:09 Freq: Status: Active Protocol: Document 06/09/20 11:09 KJS (Rec: 06/09/20 11:35 [id number]) Discharge Planning Assessment Assigned Crystal Gazer EDMUNDO Cortes Contact Information Nilsa Hobbs (life partner) [phone] Advance Directives? No History Provided By Patient,Medical Record Prior Living Arrangements RV Household Members none Type of transporation used prior to Drives own vehicle admit Independent with ADL's Yes Is patient alert and oriented? Yes Caregiver for Another No Barriers to Discharge No Discharge Plan Home Transportation Arrangement Patient drives at baseline. Has automobile in parking lot. Referrals Initiated None needed Whiteboard Updated in Patient Room with Yes name and ext. # of Crystal Gazer Review Status In Process Next Review Type Continued Stay Review
--- NOTE | 2020-06-09 14:12 | PM.DS.1 ---
History of Present Illness History of Present Illness Date Patient Seen: 06/09/20 Time Patient Seen: 14:12 Chief complaint: Shortness of breath, COPD, asthma, afib Narrative: Indio Butler is a 75-year-old male with a past medical history of chronic atrial fibrillation, COPD, alcohol abuse, hypertension, and prior coronary artery aneurysm who presented with shortness of breath worsening over the past 10 days or so. Patient states he went to an urgent care appointment yesterday who recommended that he actually be admitted to the hospital because he was so short of breath, his heart was racing, and he needed oxygen. Patient states that he looked better after getting some supplemental oxygen and prednisone, and the patient states that he was stubborn and wanted to go home so they let him. He picked up his prescription of prednisone and felt well until this morning when he had sudden onset of shortness of breath and felt like he could not breathe. He denies any palpitations, but also states his heart was racing at his the urgent care yesterday and he did not feel this. He also complains of 10 days of orthopnea and lower extremity edema. He denies any fevers, or chills but states that he had along with his increasing shortness of breath increased phlegm production which has decreased since starting his steroids. He denies any chest pain on exertion, nausea, early satiety, constipation, or diarrhea. Patient further states that he drinks about 6 beers nightly, increased recently as he has been socially isolating in his trailer since October and states that he is just bored. He denies any prior symptoms of alcohol withdrawal, and states in the past he is previously quit cold turkey without issue. He usually gets his care at the [facility], and sees a survey research analyst at the [place]. he is not recall his last ultrasound but states that he has not seen a regular doctor since [facility] because he has been socially isolating. In the emergency room, the patient was in atrial fibrillation with an uncontrolled rate as high as the 130s, hypertensive, and tachypneic but saturating well on room air. Laboratory evaluation revealed an unremarkable CBC, normal coagulation studies, chemistries were notable for an elevated lactate of 2.9, improved to 2.2 after initial therapies. Glucose was also mildly elevated 164. Troponin was negative. ProBNP was 1420. Procalcitonin was negative. Respiratory panel was negative including COVID-19 testing. EKG showed atrial fibrillation with an uncontrolled rate at [address] or T-wave abnormalities. Chest x-ray showed ill-defined opacities bilaterally with consolidation in the right lower lobe. Home Meds per patient: inhalers for COPD Lisinopril 20 or 40 mg ? dosing unknown furosemide 20 mg daily amlodipine 10 mg Xarelto 20 mg FamHx: No relevant past family history per patient Discharge Providers Provider Date of admission: 06/08/20 16:16 Discharge Date: 06/09/20 Consults: 06/08/20 11:53 Consult to Respiratory Therapy Evaluate & Treat Comment: Physician Instructions: Evaluate and treat 06/08/20 17:03 Consult to Discharge Planning Routine Comment: 06/08/20 17:05 Consult to Respiratory Therapy Evaluate & Treat Comment: Physician Instructions: Evaluate and treat Discharge provider: Uriel Mcduffie DO Summary Hospital Course Discharge Diagnosis: Please see hospital course by problem list noted below. Hospital Course: Indio Butler is a 75-year-old male with a past medical history of chronic atrial fibrillation, COPD, alcohol abuse, hypertension, and prior coronary artery aneurysm who presented with shortness of breath worsening over the past 10 days or so, he was admitted under observation status for atrial fibrillation with rapid ventricular response likely leading to suspected decompensated heart failure. He improved with rate control and diuresis and was discharged home the following day. He will follow-up with his primary care provider and survey research analyst as an outpatient. 1. Chronic Atrial fibrillation with rapid ventricular response, present on admission -EKG on admission showed atrial fibrillation with a rate of [address] or T-wave changes. Patient with spikes into the 130s laying in emergency room stretcher on telemetry. He was not on any rate control according to his home medication list. -troponin negative -continue home Xarelto 20 mg -started metoprolol succinate 25 mg BID with adequate heart rate control in the 70s-80s predominantly on telemetry. 2. Acute systolic heart failure, possibly acute on chronic, with volume overload -suspect this is related to his tachyarrhythmia/likely chronically elevated heart rate in the setting of atrial fibrillation. -patient had 2+ pitting edema bilaterally and an elevated proBNP, as well as findings suggestive of volume overload on his chest x-ray on admission. This improved rather quickly after diuresis. -He reported symptom improvement with diuresis and rate control, as well as treatments for his COPD exacerbation. -echocardiogram was performed: Which showed left ventricular hypertrophy with an EF of 40-45%. Mild to moderate global hypokinesis of the left ventricle. Was unable to obtain outside echocardiogram. Patient states that he will follow-up with his survey research analyst. He was counseled on alcohol cessation. 3. COPD exacerbation - given solumedrol 125 mg in the ER, continue prednisone taper of 40 mg x4 days, 30 mg x 4 days, 20 mg x 4 days, 10 mg x 4 days given the patient has a prolonged COPD history with flares requiring prolonged tapers. - do not suspect pneumonia at this time given negative PCR panel, negative pro-calcitonin and other more likely etiologies. will continue azithro x5 days for anti-inflammatory effect. - no medications were made to his home chronic COPD medications 4. Alcohol abuse -patient reports drinking 6 beers nightly. He denies prior symptoms of alcohol withdrawal and states that he has previously stopped drinking without any symptoms. -he did not develop symptoms of alcohol withdrawal while admitted. He was counseled on alcohol cessation. He knows of resources from the [place] for alcohol cessation, but states that he can stop drinking when he wants to. 5. Hypertension, chronic -modified his home antihypertensive slightly discussed continuing amlodipine in favor of a diuretic, and rate control. He can resume his home lisinopril at 40 mg daily. Furosemide was increased slightly to 40 mg daily as well. Metoprolol 25 mg p.o. b.i.d. was also added as discussed above. Exam Vital Signs (past 8 hours): - 06/09/20 07:12 06/09/20 07:40 06/09/20 07:42 Temperature 97.5 F L Pulse Rate 82 75 Respiratory Rate 16 20 Blood Pressure 142/101 H Pulse Oximetry 95 95 95 06/09/20 08:00 06/09/20 10:13 06/09/20 12:00 Temperature 98.2 F Pulse Rate 76 76 Respiratory Rate 16 Blood Pressure 142/101 H 136/96 H Pulse Oximetry 94 96 06/09/20 12:18 Temperature Pulse Rate 111 H Respiratory Rate 20 Blood Pressure Pulse Oximetry 95 Oxygen Delivery Method Room Air Oxygen Flow Rate 0 Narrative Exam Narrative: GENERAL APPEARANCE: Well developed, well nourished, in no acute distress. SKIN: Inspection of the skin reveals no rashes, ulcerations or petechiae. HEENT: Normocephalic atraumatic, extraocular muscles are intact, oropharynx is clear and mucous membranes are moist, neck is supple without adenopathy NECK: Supple and symmetric. There was no thyroid enlargement, and no tenderness, or masses were felt. CHEST: Normal AP diameter and normal contour without any kyphoscoliosis. LUNGS: Auscultation of the lungs revealed bibasilar crackles without wheezing. CARDIOVASCULAR: Tachycardic, irregularly irregular, no murmurs, rubs, or gallops. ABDOMEN: Soft and nontender with normal bowel sounds. No ascites was noted. MUSCULOSKELETAL: There was no tenderness or effusions noted. Muscle strength and tone were normal. EXTREMITIES: No cyanosis, clubbing. There is trace to 1+ pitting edema bilaterally in his lower extremities. NEUROLOGIC: Alert and oriented x 3. Normal affect. Strength is +5/5 in the Upper Extremities and Lower Extremities Bilaterally. Sensation to touch was normal. Objective Labs Result Diagrams: 06/09/20 04:55 06/09/20 04:55 Labs: Laboratory Results - last 24 hr 06/08/20 06/08/20 06/09/20 13:30 14:30 04:55 WBC 7.1 RBC 4.47 L Hgb 14.0 Hct 42.8 MCV 95.6 MCH 31.2 MCHC 32.7 RDW 14.3 Plt Count 188 Neut % (Auto) 83.4 H Lymph % (Auto) 10.9 L [place] % (Auto) 5.6 Eos % (Auto) 0.0 L Baso % (Auto) 0.1 Neut # (Auto) 5900 Lymph # (Auto) 800 L [place] # (Auto) 400 Eos # (Auto) 0 Baso # (Auto) 0 Sodium Potassium Chloride Carbon Dioxide BUN Creatinine Estimated GFR BUN/Creatinine Ratio Glucose Hemoglobin A1c Lactate 2.2 H Calcium Magnesium Total Bilirubin Conjugated Bilirubin Unconjugated Bilirubin AST ALT Alkaline Phosphatase Total Protein Albumin Globulin Albumin/Globulin Ratio Triglycerides Cholesterol LDL Cholesterol, Calc HDL Cholesterol TSH Free T4 Chlamy pneumoniae PCR Not detected Adenovirus (PCR) Not detected B.parapertussis DNA PCR Not detected Coronavirus OC43 (PCR) Not detected Coronavirus HKU1 (PCR) Not detected Coronavirus 229E (PCR) Not detected Coronavirus NL63 (PCR) Not detected Human Metapneumovir PCR Not detected Influenza Type A (PCR) Not detected Influenza Type B (PCR) Not detected M. pneumoniae (PCR) Not detected Parainfluenza 1 (PCR) Not detected Parainfluenza 2 (PCR) Not detected Parainfluenza 3 (PCR) Not detected Parainfluenza 4 (PCR) Not detected RSV (PCR) Not detected Entero/Rhino (PCR) Not detected 06/09/20 06/09/20 06/09/20 04:55 04:55 04:55 WBC RBC Hgb Hct MCV MCH MCHC RDW Plt Count Neut % (Auto) Lymph % (Auto) [place] % (Auto) Eos % (Auto) Baso % (Auto) Neut # (Auto) Lymph # (Auto) [place] # (Auto) Eos # (Auto) Baso # (Auto) Sodium 138 Potassium 4.0 Chloride 102 Carbon Dioxide 31 BUN 21 H Creatinine 0.85 Estimated GFR > 60.0 BUN/Creatinine Ratio 24.7 H Glucose 138 H Hemoglobin A1c 5.4 Lactate Calcium 9.0 Magnesium 2.5 H Total Bilirubin 0.8 Conjugated Bilirubin 0.0 Unconjugated Bilirubin 0.8 AST 30 ALT 25 Alkaline Phosphatase 59 Total Protein 6.4 Albumin 3.8 Globulin 2.6 Albumin/Globulin Ratio 1.5 Triglycerides 48 Cholesterol 171 LDL Cholesterol, Calc 110 H HDL Cholesterol 51 TSH 0.22 L Free T4 0.87 Chlamy pneumoniae PCR Adenovirus (PCR) B.parapertussis DNA PCR Coronavirus OC43 (PCR) Coronavirus HKU1 (PCR) Coronavirus 229E (PCR) Coronavirus NL63 (PCR) Human Metapneumovir PCR Influenza Type A (PCR) Influenza Type B (PCR) M. pneumoniae (PCR) Parainfluenza 1 (PCR) Parainfluenza 2 (PCR) Parainfluenza 3 (PCR) Parainfluenza 4 (PCR) RSV (PCR) Entero/Rhino (PCR) Discharge Plan Discharge Plan Patient Disposition: Home Provider Discharge Comment: You were admitted to the hospital with atrial fibrillation and shortness of breath. Unclear if this is due to COPD exacerbation or your atrial fibrillation. You were started on some alternative blood pressure medications to control your heart rate as well as a steroid taper. Your heart function was slightly reduced, but I do not know what it was before. Please follow up with your primary care provider in the next two weeks to check on your symptoms and I recommend you see your survey research analyst as well. Discharge orders & Medications Prescriptions: New metoprolol succinate 25 mg Tablet Extended Release 24 Hr 25 mg PO BID 30 Days Qty: 60 RF: 0 prednisone 10 mg tablet 10 mg PO DAILY Qty: 40 RF: 0 azithromycin 250 mg tablet 250 mg PO DAILY 4 Days Qty: 4 RF: 0 Continued tamsulosin [Flomax] 0.4 mg Capsule 0.4 mg PO BEDTIME RF: 0 albuterol sulfate 90 mcg/actuation Hfa Aerosol Inhaler 1 puff INHALATION QID PRN (Reason: Dyspnea) RF: 0 lisinopril 40 mg Tablet 40 mg PO DAILY RF: 0 budesonide-formoterol [Symbicort] 80-4.5 mcg/actuation Hfa Aerosol Inhaler 2 puff INHALATION BID RF: 0 Xarelto 20 mg Tablet 20 mg PO DAILY RF: 0 Changed furosemide [Lasix] 20 mg Tablet 40 mg PO DAILY 30 Days Qty: 60 RF: 0 Discontinued amlodipine 10 mg Tablet 10 mg PO DAILY RF: 0 Diet/Activity/Treatments Diet: Diet as Tolerated Activity: As tolerated Visit Report/Discharge Packet Instructions: Heart-Healthy Diet, DI for Chronic Obstructive Pulmonary Disease, How to Prevent Falls, Prednisone, Metoprolol, COPD: When to Call for Help Visit Report Forms: Patient Portal/API, Stroke Signs & Symptoms Discharge Data Attending Provider: Uriel Mcduffie Admit Date/Time: 06/08/20 16:16 Discharges patient from system. Discharge Date/Time: 06/09/20 17:00 Quality VTE Deep Vein Thrombosis/Pulmonary Embolism Present on Admission: No
--- NOTE | 2020-06-09 17:18 | PC.NURSE ---
Discharge Note Patient A&O, VSS, RA. No complaints of pain or discomfort. Discharge packet reviewed with patient by this RN, no questions or concerns. PIV/tele discontinued. 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 Belongings packed and given to patient along with discharge packet. Patient taken down to POV via wheelchair.
== END 2020-06-09 17:00 | disposition home or self-care (01) ==
LOC: ED 11:44 → AC 16:20
PROVIDERS: Admitting Provider Internal Medicine; Emergency Provider Emergency Medicine; Referring Provider Emergency Medicine; Visit Provider Internal Medicine
DX: I48.20 Chronic atrial fibrillation, unspecified (principal); I11.0 Hypertensive heart disease with heart failure; I50.23 Acute on chronic systolic (congestive) heart failure; Z79.01 Long term (current) use of anticoagulants; J44.1 Chronic obstructive pulmonary disease with (acute) exacerbation; F10.10 Alcohol abuse, uncomplicated; Z11.59 Encounter for screening for other viral diseases
CPT/HCPCS: 36415; 71045; 80048; 80061; 80076; 82550; 82553; 82962; 83036; 83605; 83735; 83880; 84145; 84439; 84443; 84484; 85025; 85610; 85730; 87633; 87635; 93005; 93010; 93306; 94640; 94760; 96365; 96367; 96375; 96376; 99284; G0378; A9270; J0696; J1940; J2930; J7613